=== PATIENT | female | born 1970 | race Caucasian/White ===

== ENCOUNTER 2017-03-11 16:50 | Emergency (ER) | payer SELFPAY ==
[~2017-03-11] VITALS: Ht 152.4 cm; Wt 64.9 kg
[2017-03-11 17:16] VITALS: Ht 152.4 cm; Wt 64.9 kg
[2017-03-12 01:18] VITALS: BP 111/50
== END 2017-03-12 01:18 | disposition home or self-care (01) ==
LOC: ED 16:50
DX: M54.9 Dorsalgia, unspecified (principal); M48.32 Traumatic spondylopathy, cervical region